=== PATIENT | female | born 1955 | race Asian ===

== ENCOUNTER 2018-11-27 06:07 | Day surgery (SDC) | payer OTHER ==
[~2018-11-27] VITALS: Ht 157.5 cm; Wt 61.7 kg
[2018-11-27] MEDS ORDERED: INSU100S22 SUBQ (07:19)
[2018-11-27] MEDS ORDERED: APID SUBQ (07:19)
[2018-11-27] MEDS ORDERED: fentaNYL 0.05 MG/ML VIAL ONE (07:57)
[2018-11-27] MEDS ORDERED: LIDOCAINE 2% 100 MG/5 ML UJET TP ONE (07:57)
[2018-11-27] MEDS ORDERED: fentaNYL 0.05 MG/ML VIAL IVP ONE (08:38)
== END 2018-11-27 10:15 | disposition home or self-care (01) ==
LOC: MDS 06:07 → MMU 06:09 → MDS 10:15
PROVIDERS: ATTEND Internal Medicine Gastroenterology
DX: D12.8 Benign neoplasm of rectum (principal); K63.89 Other specified diseases of intestine; I10 Essential (primary) hypertension; I25.10 Atherosclerotic heart disease of native coronary artery without angina pectoris; E11.9 Type 2 diabetes mellitus without complications; E78.5 Hyperlipidemia, unspecified; Z88.1 Allergy status to other antibiotic agents; Z88.8 Allergy status to other drugs, medicaments and biological substances; Z98.890 Other specified postprocedural states; Z95.818 Presence of other cardiac implants and grafts; Z79.4 Long term (current) use of insulin; Z79.2 Long term (current) use of antibiotics; Z79.84 Long term (current) use of oral hypoglycemic drugs; Z79.899 Other long term (current) drug therapy
CPT/HCPCS: 45385; J3010